=== PATIENT | female | born 1985 | race Caucasian/White ===

== ENCOUNTER 2018-02-27 21:27 | Emergency (ER) | payer OTHER ==
[2018-02-27 21:59] VITALS: BP 111/72; PULSE 85; TEMP 98.2; BMI 34.3
[2018-02-27 22:27] LABS: HCG,QUALITATIVE URINE POSITIVE
[2018-02-27 22:28] LABS: URINE APPEARANCE CLOUDY; URINE BILIRUBIN NEGATIVE (<2.0 mg/dL); URINE BLOOD NEGATIVE (NEGATIVE); URINE COLOR YELLOW; URINE GLUCOSE (UA) NEGATIVE (NEGATIVE); URINE KETONE NEGATIVE (NEGATIVE); URINE LEUK ESTERASE 3+ (NEGATIVE); URINE NITRITE NEGATIVE (NEGATIVE); URINE PROTEIN NEGATIVE (NEGATIVE); URINE UROBILINOGEN NEGATIVE mg/dL (0.2-1.0)
[2018-02-27 22:49] LABS: EPI CELLS MODERATE /HPF (FEW); YEAST FEW
--- NOTE | 2018-02-27 23:40 | PDOC ---
History of Present Illness - General Chief Complaint: Pain Stated Complaint: 7 WEEK PREG, PAIN,VAG. BLEEDING Time Seen by Provider: 02/27/18 23:40 Past History - Past Medical History Allergies/Adverse Reactions: Allergies Allergy/AdvReac Type Severity Reaction Status Date / Time No Known Allergies Allergy Verified 02/23/16 20:51 Home Medications: Ambulatory Orders Ciprofloxacin [Cipro -] 500 mg PO Q12H #10 tablet 02/23/16 COPD: No Thyroid Disease: No - Immunization History Immunization Up to Date: No - Suicide/Smoking/Psychosocial Hx Smoking History: Never smoked Substance Use Type: None *Physical Exam - Vital Signs Last Vital Signs Temp Pulse Resp BP Pulse Ox 98.2 F 85 18 111/72 100 02/27/18 21:56 02/27/18 21:56 02/27/18 21:56 02/27/18 21:56 02/27/18 21:56 ED Treatment Course - ADDITIONAL ORDERS Additional order review: Laboratory Results 02/27/18 22:04 Urine Color Yellow Urine Appearance Cloudy Urine pH 8.0 D Ur Specific [place] 1.025 Urine Protein Negative Urine Glucose (UA) Negative Urine Ketones Negative Urine Blood Negative Urine Nitrite Negative Urine Bilirubin Negative Urine Urobilinogen Negative Ur Leukocyte Esterase 3+ H Urine WBC (Auto) 26 Urine RBC (Auto) 8 Ur Epithelial Cells Moderate Urine Yeast Few Urine HCG, Qual Positive *DC/Admit/Observation/Transfer - Referrals Referrals: Sandra Flores [Primary Care Provider] - - Patient Instructions - Post Discharge Activity
--- NOTE | 2018-02-27 23:42 | PDOC ---
History of Present Illness - General Chief Complaint: Pain Stated Complaint: 7 WEEK PREG, PAIN,VAG. BLEEDING Time Seen by Provider: 02/27/18 23:40 - History of Present Illness Initial Comments: 02/28/18 02:05 32 year old female with vaginal spotting x 1 day. lmp January 11, 2018. reports suprapubic pain and lower back pain. denies nausea./ 02/28/18 02:47 Past History - Past Medical History Allergies/Adverse Reactions: Allergies Allergy/AdvReac Type Severity Reaction Status Date / Time No Known Allergies Allergy Verified 02/23/16 20:51 Home Medications: Ambulatory Orders Ciprofloxacin [Cipro -] 500 mg PO Q12H #10 tablet 02/23/16 Cephalexin Monohydrate [Keflex -] 500 mg PO BID #20 capsule 02/28/18 COPD: No Thyroid Disease: No - Immunization History Immunization Up to Date: No - Suicide/Smoking/Psychosocial Hx Smoking History: Never smoked Substance Use Type: None *Physical Exam - Vital Signs Last Vital Signs Temp Pulse Resp BP Pulse Ox 98.2 F 85 18 111/72 100 02/27/18 21:56 02/27/18 21:56 02/27/18 21:56 02/27/18 21:56 02/27/18 21:56 - Physical Exam Respiratory/Chest: positive: Lungs Clear, Normal Breath Sounds Female Pelvic Exam: positive: normal external exam, discharge (white vaginal discharge) Gastrointestinal/Abdominal: positive: Normal Bowel Sounds, Tender (suprepubic tenderness), Soft ED Treatment Course - LABORATORY CBC & Chemistry Diagram: 02/28/18 00:01 - ADDITIONAL ORDERS Additional order review: Laboratory Results 02/27/18 22:04 Urine Color Yellow Urine Appearance Cloudy Urine pH 8.0 D Ur Specific [place] 1.025 Urine Protein Negative Urine Glucose (UA) Negative Urine Ketones Negative Urine Blood Negative Urine Nitrite Negative Urine Bilirubin Negative Urine Urobilinogen Negative Ur Leukocyte Esterase 3+ H Urine WBC (Auto) 26 Urine RBC (Auto) 8 Ur Epithelial Cells Moderate Urine Yeast Few Urine HCG, Qual Positive - RADIOLOGY Radiograph Interpretation: 02/28/18 01:30 Ultrasound :Uterus is anteverted and measures 11.1centimeters in length. There is a single live IUP with estimated age 6 weeks one day. Normal heart rate of 122 beats per minute. No subchorionic bleed. The right ovary measures 2.7centimeters in length, contains a 1.7 cm cyst, possibly corpus luteum, and demonstrates normal flow. Left ovary was not visualized. There is no significant free fluid. *DC/Admit/Observation/Transfer Diagnosis at time of Disposition: Vaginal bleeding in UTI (urinary tract infection) Qualifiers: Urinary tract infection type: acute cystitis Hematuria presence: without hematuria Qualified Code(s): N30.00 - Acute cystitis without hematuria - Discharge Dispostion Disposition: HOME - Prescriptions Prescriptions: Cephalexin Monohydrate [Keflex -] 500 mg PO BID #20 capsule - Referrals Referrals: Sandra Flores [Primary Care Provider] - Call tomorrow Deena Coa MD [Staff Physician] - - Patient Instructions Printed Discharge Instructions: DI for Vaginal Bleeding During Additional Instructions: take cephalexin as prescribed. 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 return to the ER if symptoms worsen r - Post Discharge Activity Forms/Work/School Notes: Back to Work
[2018-02-28 00:24] LABS: BASO % 0.4 % (0-2.0); EOS % 0.6 % (0-4.5); HEMATOCRIT 37.2 % (32.4-45.2); HEMOGLOBIN 12.2 GM/dL (10.7-15.3); LYMPH % 40.7 % (8-40); MCH 26.6 pg (25.7-33.7); MEAN CELL VOLUME 80.7 fl (80-96); MONO % 7.5 % (3.8-10.2); NEUT % 50.8 % (42.8-82.8); PLATELET COUNT 168 K/MM3 (134-434); RDW 13.5 % (11.6-15.6); WHITE BLOOD COUNT 9.6 K/mm3 (4.0-10.0)
[2018-02-28] MEDS ORDERED: CEPHALEXIN MONOHYDRATE 500 MG CAPSULE (UD) PO ONE (01:30)
[2018-02-28] MEDS ORDERED: CEPHALEXIN MONOHYDRATE 500 MG CAPSULE (UD) ONE (01:58)
== END 2018-02-28 02:59 | disposition home or self-care (01) ==
LOC: JER 21:27
DX: O26.891 Other specified pregnancy related conditions, first trimester (principal); O23.11 Infections of bladder in pregnancy, first trimester; Z3A.01 Less than 8 weeks gestation of pregnancy
CPT/HCPCS: 76817-TC; 81003; 81015; 84702; 84703; 85025; 86850; 86900; 86901; 99281-25

== ENCOUNTER 2018-06-30 17:05 | Emergency (ER) | payer OTHER ==
[2018-06-30 17:11] VITALS: BMI 37.7
--- NOTE | 2018-06-30 17:18 | PDOC ---
Rapid Medical Evaluation Chief Complaint: Back Pain Time Seen by Provider: 06/30/18 17:16 Medical Evaluation: Allergies Allergy/AdvReac Type Severity Reaction Status Date / Time No Known Allergies Allergy Verified 06/30/18 17:09 Vital Signs Temp Pulse Resp BP Pulse Ox 98.5 F 96 H 18 122/93 100 06/30/18 17:09 06/30/18 17:09 06/30/18 17:09 06/30/18 17:09 06/30/18 17:09 06/30/18 17:16 I have performed a brief in person evaluation of this patient The patient presents with a chief complaint of lower abdominal pressure and back pain. She is 24 weeks Pertinent physical exam findings: In NAD, unlabored breathing. Gravid The patient will proceed to the Labor and Delivery for further eval Discharge Disposition - Diagnosis Abdominal pain, Abdominal pain affecting - Referrals - Patient Instructions - Post Discharge Activity
[2018-06-30 17:59] VITALS: BP 127/72; PULSE 78; TEMP 98.2
== END 2018-06-30 18:10 | disposition home or self-care (01) ==
LOC: JER 17:05
DX: O26.892 Other specified pregnancy related conditions, second trimester (principal); R10.30 Lower abdominal pain, unspecified; M54.5 Low back pain; Z3A.24 24 weeks gestation of pregnancy
CPT/HCPCS: 99281-25

== ENCOUNTER 2018-10-17 09:13 | Inpatient (IN) | payer OTHER ==
[2018-10-17] MEDS ORDERED: AMPICILLIN - 2 GM in SODIUM CHLORIDE 100 ML IVPB ONE (10:00)
[2018-10-17] MEDS ORDERED: AMPICILLIN SODIUM 2 GM VIAL ONE (10:11)
[2018-10-17] MEDS ORDERED: ELECTROLYTE-148 SOLN 1,000 ML IV SCH ×3 (10:30→12:30)
[2018-10-17] MEDS ORDERED: CITRIC ACID/SODIUM CITRATE 30 ML UNIT-DOSE CUP PO ONE ×2 (10:31→11:30)
--- NOTE | 2018-10-17 10:39 | HP ---
Past Medical History - Primary Care Physician PCP:: Nolberto Beaver - Admission Chief Complaint: 39 weeks, previous c/s of unknown type. vaginal bleeding in labor History Source: Patient Limitations to Obtaining History: No Limitations - Past Surgical History Past Surgical History: Yes: Hx Myomectomy: No Hx Transabdominal Cerclage: No - Smoking History Smoking history: Never smoked Have you smoked in the past 12 months: No - Alcohol/Substance Use Hx Alcohol Use: No - Social History History of Recent Travel: No Home Medications - Allergies Allergies/Adverse Reactions: Allergies Allergy/AdvReac Type Severity Reaction Status Date / Time No Known Allergies Allergy Verified 10/17/18 10:17 - Home Medications Home Medications: Ambulatory Orders Vits96/Iron Fum/Folic [ Tablet] 1 each PO DAILY 10/17/18 Review of Systems - Review of Systems Constitutional: reports: No Symptoms Eyes: reports: No Symptoms HENT: reports: No Symptoms Neck: reports: No Symptoms Cardiovascular: reports: No Symptoms Respiratory: reports: No Symptoms Gastrointestinal: reports: No Symptoms Genitourinary: reports: Vaginal Bleeding Breasts: reports: No Symptoms Reported Musculoskeletal: reports: No Symptoms Integumentary: reports: No Symptoms Neurological: reports: No Symptoms Endocrine: reports: No Symptoms Hematology/Lymphatic: reports: No Symptoms Psychiatric: reports: No Symptoms Physical Exam - Maternity Constitutional: Yes: Well Nourished, No Distress, Calm Eyes: Yes: WNL, Conjunctiva Clear, EOM Intact HENT: Yes: WNL, Atraumatic, Normocephalic Neck: Yes: WNL, Supple, Trachea Midline Cardiovascular: Yes: WNL, Regular Rate and Rhythm Breast(s): Yes: WNL - Abdominal Exam/OB Fundal Height: 38 Number of Fetuses: Single Presentation: Vertex Contractions: Yes Regularity: Regular Intensity: Mod/Strong Monitor Mode: External Heart Rate Location: [facility] Category: I Accelerations: Uniform Decelerations: None - Vaginal Exam/OB Vaginal Bleediing: Yes, Bloody Show Speculum Exam: No Dilatation (cm): 1 cm Effacement (%): 70 Amniotic Membrane Status: Intact Nitrazine Test: Negative Presentation: Vertex/Position Station: -4 - Physical Exam Musculoskeletal: Yes: WNL Extremities: Yes: WNL Edema: Yes Edema: LLE: Trace, RLE: Trace Deep Tendon Reflex Grade: Normal +2 ...Motor Strength: WNL Psychiatric: Yes: WNL Hemorrhage Risk Assessment - Risk Factors Medium Risk Factors: Yes: Multiple gestation High Risk Factors: Yes: Active bleeding on admission Risk Score: 3 Risk Level: High Risk Problem List - Problems (1) with 38 completed weeks gestation Code(s): Z3A.38 - 38 WEEKS GESTATION OF (2) Previous section Code(s): Z98.891 - HISTORY OF UTERINE SCAR FROM PREVIOUS SURGERY (3) Labor established Code(s): NSS5435 - (4) Vaginal bleeding in Code(s): O46.90 - ANTEPARTUM HEMORRHAGE, UNSPECIFIED, UNSPECIFIED TRIMESTER Assessment/Plan previous c/s of unlnown type, early labor , vaginal bleeding , repeat c/s vs discussed with patient , risks of repeat c/s discussed , wants repeat c/s
[2018-10-17 10:49] VITALS: BMI 42.4
[2018-10-17] MEDS ORDERED: morphine SULFATE/Preservative Free 0.5 MG/ML (1cc Syringe) ONE (10:54)
[2018-10-17] MEDS ORDERED: BUPIVACAINE HCL/PF 0.5% (5MG/ML) 10 ML VIAL ONE (10:56)
[2018-10-17] MEDS ORDERED: OXYTOCIN 20 UNITS in 0.9% NS 20 UNIT/1,000 ML INFUS.BAG IV ONE (11:08)
[2018-10-17 11:11] LABS: BASO % 0.2 % (0-2.0); EOS % 0.2 % (0-4.5); HEMATOCRIT 39.2 % (32.4-45.2); LYMPH % 19.6 % (8-40); MCH 26.8 pg (25.7-33.7); MCHC 33.2 g/dl (32.0-36.0); MEAN CELL VOLUME 80.8 fl (80-96); MEAN PLT VOLUME 10.1 fl (7.5-11.1); MONO % 5.5 % (3.8-10.2); NEUT % 74.5 % (42.8-82.8); PLATELET COUNT 156 K/MM3 (134-434); RBC 4.86 M/mm3 (3.60-5.2); RDW 14.2 % (11.6-15.6); WHITE BLOOD COUNT 9.2 K/mm3 (4.0-10.0)
[2018-10-17 11:23] LABS: INR 1.01 (0.83-1.09); PROTHROMBIN TIME (PATIENT) 11.9 SEC (9.7-13.0)
[2018-10-17 11:26] LABS: ACTIVATED PTT 26.6 SECONDS (25.2-36.5)
[2018-10-17 11:36] LABS: ANION GAP 11 MMOL/L (8-16); BLOOD UREA NITROGEN 9 mg/dL (7-18); CALCIUM 8.2 mg/dL (8.5-10.1); CHLORIDE 105 mmol/L (98-107); CO2 23 mmol/L (21-32); CREATININE 0.4 mg/dL (0.55-1.3); GLUCOSE,RANDOM 70 mg/dL (74-106); POTASSIUM 3.9 mmol/L (3.5-5.1); SODIUM 139 mmol/L (136-145)
[2018-10-17] MEDS ORDERED: oxyCODONE HCL 5 MG TABLET PO PRN (12:36)
[2018-10-17] MEDS ORDERED: BENZOCAINE 28 GM HEMORRHOIDAL OINTMENT PR PRN (12:36)
[2018-10-17] MEDS ORDERED: BENZOCAINE 20% 57 GM BOTTLE TP PRN (12:36)
[2018-10-17] MEDS ORDERED: METHYLERGONOVINE MALEATE 0.2 MG/1 ML AMP IM PRN (12:36)
[2018-10-17] MEDS ORDERED: diphenhydrAMINE HCL 25 MG CAPSULE (FP) PO PRN (12:36)
[2018-10-17] MEDS ORDERED: WITCH HAZEL 50% (TUCKS) 40 PAD/JAR PAD TP PRN (12:36)
[2018-10-17] MEDS ORDERED: DEXTROSE 5%-LACTATED RINGERS 1,000 ML IV SCH (12:45)
[2018-10-17] MEDS ORDERED: OXYTOCIN 20 UNITS in 0.9% NS 20 UNIT/1,000 ML INFUS.BAG IV SCH ×2 (12:45→13:00)
--- NOTE | 2018-10-17 13:57 | OP ---
DATE OF OPERATION: 10/17/2018 PREOPERATIVE DIAGNOSES: , 39 weeks, previous section of unknown type, labor, vaginal bleeding. POSTOPERATIVE DIAGNOSES: , 39 weeks, previous section of unknown type, labor, vaginal bleeding. PROCEDURE: Repeat low-segment transverse section. SURGEON: Leola Beaver MD GAGE DESIGNER: ROBI Ford ANESTHESIA: Spinal. ESTIMATED BLOOD LOSS: 500 mL FINDINGS: A live baby boy, Apgars 9 and 9. DESCRIPTION OF OPERATION: Patient was taken to the operating room. Under adequate spinal anesthesia, abdomen and perineum were prepped and draped. Pfannenstiel abdominal skin incision was made. The abdominal wall was cut layer by layer until peritoneum was exposed and incised. Upon entering the abdominal cavity, lower uterine segment was identified and uterovesical fold of peritoneum established. Bladder was pushed down. Then, with the lower blade of the Martin retractor in the pelvis, a low transverse uterine incision was made. Incision extended laterally. Amniotic sac was entered; clear fluid. Head delivered from right occiput transverse position. Nasopharynx was suctioned. Live baby boy was delivered without any difficulty. Apgars 9 and 9. Placenta was delivered manually. Uterine cavity was cleaned out of remaining tissue. Uterine incision was closed in 2 layers, first layer with 0 Biosyn continuous suture, the second layer with 0 Biosyn imbricating the first layer. There was some bleeding at the left angle of the uterine incision which was sutured with interrupted suture of 0 Biosyn, and hemostasis was established. Then, peritoneum was closed with 0 Biosyn continuous suture. All the lap pad, sponge, and instrument count was correct. No active bleeding was seen. The fascia was closed with 0 Biosyn continuous suture and then the subcutaneous fat was closed with interrupted suture of 0 Biosyn and the skin was closed with vane. Patient tolerated the procedure well, left the OR in good condition. LEOLA BEAVER M.D. [id number]
[2018-10-17] MEDS ORDERED: ONDANSETRON 4 MG/2 ML VIAL IVPUSH PRN (14:55)
[2018-10-17] MEDS ORDERED: morphine SULFATE/Preservative Free 0.5 MG/ML (1cc Syringe) EP ONE (14:56)
[2018-10-17] MEDS ORDERED: LACTATED RINGERS SOLUTION 1,000 ML IV SCH (15:00)
[2018-10-17] MEDS: IBUPROFEN 800 MG/8 ML IJ IVPB PRN (17:35)
[2018-10-17] MEDS: CEFAZOLIN 1 GM/D5W 1 GM/50 ML BAG IVPB SCH (19:02)
[2018-10-18] MEDS: CEFAZOLIN 1 GM/D5W 1 GM/50 ML BAG IVPB SCH (02:06)
[2018-10-18] MEDS: IBUPROFEN 800 MG/8 ML IJ IVPB PRN (06:26)
[2018-10-18 07:36] LABS: BASO % 0.1 % (0-2.0); EOS % 0.3 % (0-4.5); HEMATOCRIT 32.9 % (32.4-45.2); HEMOGLOBIN 11.3 GM/dL (10.7-15.3); LYMPH % 16.8 % (8-40); MCH 27.7 pg (25.7-33.7); MCHC 34.5 g/dl (32.0-36.0); MEAN CELL VOLUME 80.3 fl (80-96); MEAN PLT VOLUME 9.3 fl (7.5-11.1); MONO % 6.4 % (3.8-10.2); NEUT % 76.4 % (42.8-82.8); PLATELET COUNT 131 K/MM3 (134-434); RDW 14.4 % (11.6-15.6); WHITE BLOOD COUNT 9.8 K/mm3 (4.0-10.0)
[2018-10-18] MEDS: ENOXAPARIN NA (PORCINE) 40 MG/0.4 ML DISP.SYRIN SQ SCH (09:55)
--- NOTE | 2018-10-18 10:06 | PN ---
Post Progress Note - Subjective Subjective: c/o pain scale 6/10 not oob yet not voided since cintron is taken out Post Day: 1 Type of Delivery: Repeat C/S Vital Signs: Vital Signs Temperature 98.5 F 10/18/18 06:00 Pulse Rate 83 10/18/18 06:00 Respiratory Rate 20 10/18/18 06:00 Blood Pressure 117/75 10/18/18 06:00 O2 Sat by Pulse Oximetry (%) 100 10/17/18 14:00 Breast Exam: Yes: Soft, Other (plans to BF ). No: Engorged Uterus: Yes: Fundus Firm, Fundus below umbilicus, Non-tender Incision: Yes: Dressing dry and intact. No: Oozing Abdomen/GI: Yes: Abdomen soft (bs active ), Abdominal Distention (obese abdomen ), Tolerating PO (clear fluid s). No: Tender, Passing flatus Lochia: Yes: Rubra Lochia, amount: Moderate Extremities: Yes: Calves non-tender Perineum: Yes: Intact Activity: Other (in bed still ) - Labs Labs: CBC WBC 9.8 K/mm3 (4.0-10.0) 10/18/18 07:00 RBC 4.10 M/mm3 (3.60-5.2) 10/18/18 07:00 Hgb 11.3 GM/dL (10.7-15.3) 10/18/18 07:00 Hct 32.9 % (32.4-45.2) D 10/18/18 07:00 MCV 80.3 fl (80-96) 10/18/18 07:00 MCH 27.7 pg (25.7-33.7) 10/18/18 07:00 MCHC 34.5 g/dl (32.0-36.0) 10/18/18 07:00 RDW 14.4 % (11.6-15.6) 10/18/18 07:00 Plt Count 131 K/MM3 (134-434) L 10/18/18 07:00 MPV 9.3 fl (7.5-11.1) 10/18/18 07:00 Absolute Neuts (auto) 7.5 K/mm3 (1.5-8.0) 10/18/18 07:00 Neutrophils % 76.4 % (42.8-82.8) 10/18/18 07:00 Lymphocytes % 16.8 % (8-40) 10/18/18 07:00 Monocytes % 6.4 % (3.8-10.2) 10/18/18 07:00 Eosinophils % 0.3 % (0-4.5) 10/18/18 07:00 Basophils % 0.1 % (0-2.0) 10/18/18 07:00 Nucleated RBC % 0 % (0-0) 10/18/18 07:00 Other Findings, Remarks: RS cta i/o 2840/400+300 Problem List - Problems (1) delivery delivered Code(s): O82 - ENCOUNTER FOR DELIVERY WITHOUT INDICATION (2) Encounter for care after hospital delivery Code(s): Z39.2 - ENCOUNTER FOR ROUTINE FOLLOW-UP Assessment/Plan stable Plan encourage po fluids, ambulation & deep breathing ex
[2018-10-18] MEDS ORDERED: BISACODYL 10 MG SUPP.RECT RC PRN (12:36)
[2018-10-18] MEDS: IBUPROFEN 600 MG TABLET (FP) PO PRN ×2 (17:04→20:54)
[2018-10-18] MEDS: ACETAMINOPHEN 325 MG TABLET (FP) PO PRN ×2 (17:04→20:54)
[2018-10-18] MEDS: SIMETHICONE 80 MG TAB.CHEW (FP) PO PRN (18:32)
--- NOTE | 2018-10-19 06:46 | PN ---
Post Progress Note Type of Delivery: Repeat C/S Vital Signs: Vital Signs Temperature 97.8 F 10/18/18 21:00 Pulse Rate 95 H 10/18/18 21:00 Respiratory Rate 18 10/18/18 21:00 Blood Pressure 114/68 10/18/18 21:00 O2 Sat by Pulse Oximetry (%) 100 10/17/18 14:00 Uterus: Yes: Fundus below umbilicus Incision: Yes: Dressing dry and intact Abdomen/GI: Yes: Abdomen soft Lochia: Yes: Rubra Lochia, amount: Small Extremities: Yes: Calves non-tender Perineum: Yes: Intact - Labs Labs: CBC WBC 9.8 K/mm3 (4.0-10.0) 10/18/18 07:00 RBC 4.10 M/mm3 (3.60-5.2) 10/18/18 07:00 Hgb 11.3 GM/dL (10.7-15.3) 10/18/18 07:00 Hct 32.9 % (32.4-45.2) D 10/18/18 07:00 MCV 80.3 fl (80-96) 10/18/18 07:00 MCH 27.7 pg (25.7-33.7) 10/18/18 07:00 MCHC 34.5 g/dl (32.0-36.0) 10/18/18 07:00 RDW 14.4 % (11.6-15.6) 10/18/18 07:00 Plt Count 131 K/MM3 (134-434) L 10/18/18 07:00 MPV 9.3 fl (7.5-11.1) 10/18/18 07:00 Absolute Neuts (auto) 7.5 K/mm3 (1.5-8.0) 10/18/18 07:00 Neutrophils % 76.4 % (42.8-82.8) 10/18/18 07:00 Lymphocytes % 16.8 % (8-40) 10/18/18 07:00 Monocytes % 6.4 % (3.8-10.2) 10/18/18 07:00 Eosinophils % 0.3 % (0-4.5) 10/18/18 07:00 Basophils % 0.1 % (0-2.0) 10/18/18 07:00 Nucleated RBC % 0 % (0-0) 10/18/18 07:00 Assessment/Plan 33yo s/p RLTCS, POD2 Routine PP care Labs reviewed; CXR neg OOB, ambulate DC to home tomorrow Allie Vazquez MD
[2018-10-19] MEDS: ENOXAPARIN NA (PORCINE) 40 MG/0.4 ML DISP.SYRIN SQ SCH (09:10)
[2018-10-19] MEDS: oxyCODONE HCL 5 MG TABLET PO PRN ×2 (09:10→12:45)
[2018-10-19] MEDS: SIMETHICONE 80 MG TAB.CHEW (FP) PO PRN ×3 (09:11→18:04)
[2018-10-19] MEDS: ACETAMINOPHEN 325 MG TABLET (FP) PO PRN ×3 (09:11→18:04)
[2018-10-19] MEDS: IBUPROFEN 600 MG TABLET (FP) PO PRN (18:05)
[2018-10-19] MEDS ORDERED: SENNOSIDES/DOCUSATE COMBO (SENNA PLUS) TABLET (UD) PO PRN (22:00)
[2018-10-20] MEDS: ACETAMINOPHEN 325 MG TABLET (FP) PO PRN ×2 (00:53→11:05)
[2018-10-20] MEDS: SIMETHICONE 80 MG TAB.CHEW (FP) PO PRN ×2 (00:53→11:07)
[2018-10-20] MEDS: IBUPROFEN 600 MG TABLET (FP) PO PRN ×2 (00:54→11:05)
[2018-10-20 06:04] LABS: HEMOGLOBIN 10.1 GM/dL (10.7-15.3); MCH 27.9 pg (25.7-33.7); MCHC 34.7 g/dl (32.0-36.0); MEAN CELL VOLUME 80.4 fl (80-96); PLATELET COUNT 146 K/MM3 (134-434); RBC 3.61 M/mm3 (3.60-5.2); RDW 14.3 % (11.6-15.6); WHITE BLOOD COUNT 7.5 K/mm3 (4.0-10.0)
[2018-10-20 06:05] LABS: BASO % 0.3 % (0-2.0); LYMPH % 33.3 % (8-40); MEAN PLT VOLUME 8.9 fl (7.5-11.1); MONO % 7.8 % (3.8-10.2); NEUT % 57.6 % (42.8-82.8)
--- NOTE | 2018-10-20 08:26 | PN ---
Progress Note (short form) - Note Progress Note: pod 3 , no c/o , voids ok, had BM CBC, BMP 10/20/18 05:56 10/17/18 10:20 Last Vital Signs Temp Pulse Resp BP Pulse Ox 97.7 F 100 H 20 122/87 100 10/19/18 21:06 10/19/18 21:06 10/19/18 21:06 10/19/18 21:06 10/17/18 14:00 abdomen soft, no distension, no cva incision dry, clean no calf tenderness lochia mild plan d/c home, follow up clinic 1 weekfor staple removal Problem List - Problems (1) with 38 completed weeks gestation Code(s): Z3A.38 - 38 WEEKS GESTATION OF (2) Previous section Code(s): Z98.891 - HISTORY OF UTERINE SCAR FROM PREVIOUS SURGERY (3) Labor established Code(s): [id number] - (4) Vaginal bleeding in Code(s): O46.90 - ANTEPARTUM HEMORRHAGE, UNSPECIFIED, UNSPECIFIED TRIMESTER
--- NOTE | 2018-10-20 08:28 | DS ---
Physical Exam-CERTIFIED PEER SPECIALIST Vital Signs: Vital Signs Temperature 97.7 F 10/19/18 21:06 Pulse Rate 100 H 10/19/18 21:06 Respiratory Rate 20 10/19/18 21:06 Blood Pressure 122/87 10/19/18 21:06 O2 Sat by Pulse Oximetry (%) 100 10/17/18 14:00 Constitutional: Yes: Well Nourished, No Distress, Calm Eyes: Yes: WNL, Conjunctiva Clear, EOM Intact HENT: Yes: WNL, Atraumatic, Normocephalic Neck: Yes: WNL, Supple, Trachea Midline Cardiovascular: Yes: WNL, Regular Rate and Rhythm Respiratory: Yes: WNL, Regular, CTA Bilaterally Gastrointestinal: Yes: WNL ...Rectal Exam: Yes: WNL Renal/: Yes: WNL External Genitalia: Yes: Normal Vaginal Exam: Yes: Normal ....Post : Yes: Uterus firm, Uterus non-tender, Slight lochia rubra Breast(s): Yes: WNL Musculoskeletal: Yes: WNL Extremities: Yes: WNL Edema: No Integumentary: Yes: WNL Wound/Incision: Yes: Clean/Dry, Well Approximated, Arthur Intact Neurological: Yes: WNL, Alert, Oriented ...Motor Strength: WNL Psychiatric: Yes: WNL, Alert, Oriented Labs: CBC, BMP 10/20/18 05:56 10/17/18 10:20 Delivery - Delivery Section: Repeat, Low Flap Transverse (no complication) Type of Anesthesia: Spinal Episiotomy/Laceration: None EBL (cc): 500 Delivery, Single - Stages of Labor Date 1st Stage Initiatied: 10/17/18 Time 1st Stage Initiated: 06:00 Date of Delivery: 10/17/18 Time of Delivery: 11:52 Time Placenta Delivered: 11:53 Placenta: Yes: Expressed - Condition of Pig Iron Loader/Management Trainer Present: Yes Name: Jamie Mejia Gender: Male Weight: 8 lb 8 oz Position: Right, OT Total Hours ROM (Hrs/Mins): 0/2 - 1 Minute Total Score: 9 5 Minutes Total Score: 9 - Feeding Plan Initial Plan: Elected not to breastfeed exclusively throughout hospitalization Discharge Summary Reason For Visit: PREVIOUS IN LABOR Current Active Problems delivery delivered (Acute) Encounter for care after hospital delivery (Acute) Labor established (Acute) with 38 completed weeks gestation (Acute) Previous section (Acute) Other Procedures: repeat LST c/s Hospital Course: no complication Condition: Stable - Instructions Diet, Activity, Other Instructions: Regular Diet Arthur need to be removed in one week Referrals: Allie Vazquez MD [Staff Physician] - Disposition: HOME - Home Medications Comprehensive Discharge Medication List: Ambulatory Orders Vits96/Iron Fum/Folic [ Tablet] 1 each PO DAILY 10/17/18 Ibuprofen 600 mg PO Q6H PRN #30 tablet 10/19/18 Oxycodone HCl/Acetaminophen [Percocet 5-325 mg Tablet -] 1 - 2 tab PO Q6H PRN # 20 tab MDD 3 10/19/18
[2018-10-20] MEDS: ENOXAPARIN NA (PORCINE) 40 MG/0.4 ML DISP.SYRIN SQ SCH (10:57)
[2018-10-20 13:29] VITALS: BP 124/72; PULSE 68; TEMP 98.2
--- NOTE | 2018-10-27 17:51 | PATH ---
Surgical Pathology Report Patient Name: ELIA DUMONT V. [facility]. Rec. #: [id number] /Age/Gender: 1985 (Age: 33) / F Account: [id number] Location: [facility] OBS/MORTGAGE LOAN COUNSELOR Taken: 10/17/2018 Received: 10/18/2018 Reported: 10/27/2018 Physicians: Nolberto Beaver M.D. Specimen(s) Received PLACENTA Clinical History at 39.1 weeks, history of previous x3, x1 Positive GBS Final Diagnosis PLACENTA: THIRD TRIMESTER PLACENTA. TRIVASCULAR CORD. MEMBRANES WITH NO DIAGNOSTIC ABNORMALITIES. Electronically Signed Kirstie Stevenson M.D. Gross Description The specimen is received fresh labeled placenta and is a 511 gram, 16.5 x 15.5 x 2.5 cm. placenta with attached membranes and umbilical cord. The attached membranes are lombardi, translucent with focal opacities and insert marginally. The umbilical cord measures 35 cm. in length and averages 1 cm. in diameter. The cord inserts eccentrically, 2 cm. to the nearest margin. No true knots or strictures are identified. Cut surface of the umbilical cord reveals 3 vessels. The surface is hector-blue with minimal fibrin deposition and appropriate caliber vessels. The maternal surface is red-brown with focal defects. Sectioning reveals red-brown, spongy parenchyma. No lesions are identified. Rail Detector Car Operator sections are submitted in three cassettes as follows: 1- membrane rolls and umbilical cord; 2-3- full thickness sections of placenta. /10/26/2018 saudi10/26/2018
== END 2018-10-20 12:15 | disposition home or self-care (01) | DRG 540 ==
LOC: JDEL 09:13 → JLDR 09:55 → J3W 14:31
PROVIDERS: ADMIT Obstetrics & Gynecology; ATTEND Obstetrics & Gynecology
PROC: 10D00Z1 Extraction of Products of Conception, Low, Open Approach (ICD-10-PCS; principal; 2018-10-17)
DX: O34.211 Maternal care for low transverse scar from previous cesarean delivery (principal); O67.9 Intrapartum hemorrhage, unspecified; Z3A.39 39 weeks gestation of pregnancy; Z37.0 Single live birth
CPT/HCPCS: 36415; 71046-TC-FY; 80048; 85025; 85610; 85730; 86593; 86850; 86900; 86901; 88307-TC

== ENCOUNTER 2020-10-03 04:27 | Day surgery (SDC) | payer OTHER ==
[2020-09-29 14:37] VITALS: BMI 35.1
[2020-10-03] MEDS ORDERED: BUPIVACAINE HCL 50 ML ONE (08:04)
[2020-10-03] MEDS ORDERED: BUPIVACAINE HCL/PF 0.75% 10 ML VIAL ONE ×2 (08:04→10:03)
[2020-10-03] MEDS ORDERED: LIDOCAINE HCL/PF 2% SDV 5ML VIAL ONE (08:06)
[2020-10-03] MEDS ORDERED: SODIUM CHLORIDE 0.9% P/F 10 ML VIAL IJ ONE (08:06)
[2020-10-03] MEDS ORDERED: DEXAMETHASONE SOD PHOSPHATE/PF 10 MG/ML SDV ONE ×2 (08:12→10:02)
[2020-10-03] MEDS ORDERED: LIDOCAINE HCL/PF 1% SDV 5ML VIAL ONE ×2 (08:12→10:02)
[2020-10-03 09:07] VITALS: TEMP 97.7
[2020-10-03] MEDS ORDERED: BUPIVACAINE HCL 100 ML ONE (10:02)
[2020-10-03] MEDS ORDERED: DEXAMETHASONE SOD PHOSPHATE 4 MG/1 ML VIAL NR ONE (10:18)
[2020-10-03] MEDS ORDERED: LIDOCAINE HCL 1% PRESERVATIVE FREE - 30ML VIAL INF ONE (10:18)
[2020-10-03] MEDS ORDERED: IOHEXOL 180 MG/1 ML ML IT ONE (10:20)
[2020-10-03 10:45] VITALS: BP 125/88; PULSE 74
== END 2020-10-03 11:20 | disposition home or self-care (01) ==
LOC: JASU-SURG 04:27
PROVIDERS: ATTEND Pain Medicine Pain Medicine
PROC: 3E0R33Z Introduction of Anti-inflammatory into Spinal Canal, Percutaneous Approach (ICD-10-PCS; 2020-10-03)
PROC: 3E0R3BZ Introduction of Anesthetic Agent into Spinal Canal, Percutaneous Approach (ICD-10-PCS; principal; 2020-10-03 10:30)
DX: M54.16 Radiculopathy, lumbar region (principal)
CPT/HCPCS: 76000-TC-FY; 81025

== ENCOUNTER 2021-06-26 19:40 | Emergency (ER) | payer OTHER ==
[2021-06-26 19:45] VITALS: BP 130/83; PULSE 75; TEMP 98; BMI 34.4
== END 2021-06-26 21:38 | disposition home or self-care (01) ==
LOC: JERFT 19:40
DX: H02.843 Edema of right eye, unspecified eyelid (principal); S05.91XA Unspecified injury of right eye and orbit, initial encounter
CPT/HCPCS: 99283-25

== ENCOUNTER 2021-09-30 10:19 | Emergency (ER) | payer OTHER ==
[2021-09-30 11:07] VITALS: BP 135/95; PULSE 92; TEMP 97.9; BMI 34.2
[2021-09-30] MEDS ORDERED: IBUPROFEN 600 MG TABLET (FP) PO ONE ×2 (11:30→11:51)
== END 2021-09-30 14:27 | disposition home or self-care (01) ==
LOC: JERFT 10:19 → JER 10:19 → JERFT 14:27
DX: S49.91XA Unspecified injury of right shoulder and upper arm, initial encounter (principal); W01.0XXA Fall on same level from slipping, tripping and stumbling without subsequent striking against object, initial encounter
CPT/HCPCS: 73030-TC-RT-FY; 99283-25

== ENCOUNTER 2023-05-11 16:30 | Emergency (ER) | payer OTHER ==
[2023-05-11 16:44] VITALS: BP 131/93; PULSE 83; RESP 19; TEMP 98.2; BMI 32.0
[2023-05-11] MEDS ORDERED: LIDOCAINE 5% TOPICAL PATCH TP ONE (17:29)
[2023-05-11] MEDS ORDERED: KETOROLAC TROMETHAMINE 30 MG/1 ML VIAL IM ONE (17:29)
[2023-05-11] MEDS ORDERED: DEXAMETHASONE SOD PHOSPHATE 10 MG/1 ML VIAL IM ONE (17:29)
[2023-05-11] MEDS ORDERED: METHOCARBAMOL 500 MG TABLET PO ONE (17:29)
[2023-05-11] MEDS ORDERED: LIDOCAINE 5% TOPICAL PATCH ONE (17:36)
[2023-05-11] MEDS ORDERED: DEXAMETHASONE SOD PHOSPHATE 10 MG/1 ML VIAL ONE (17:37)
[2023-05-11] MEDS ORDERED: KETOROLAC TROMETHAMINE 60 MG/2 ML VIAL ONE (17:37)
[2023-05-11] MEDS ORDERED: METHOCARBAMOL 500 MG TABLET ONE (17:37)
== END 2023-05-11 19:08 | disposition home or self-care (01) ==
LOC: JERFT 16:30
PROC: 3E023GC Introduction of Other Therapeutic Substance into Muscle, Percutaneous Approach (ICD-10-PCS; principal; 2023-05-11)
PROC: 3E0233Z Introduction of Anti-inflammatory into Muscle, Percutaneous Approach (ICD-10-PCS; 2023-05-11)
DX: M25.512 Pain in left shoulder (principal); M54.2 Cervicalgia; R51.9 Headache, unspecified; M62.838 Other muscle spasm
CPT/HCPCS: 73030-TC-LT-FY; 99284-25; J1100

== ENCOUNTER 2023-05-24 17:46 | Emergency (ER) | payer OTHER ==
[2023-05-24 17:54] VITALS: BP 119/80; PULSE 64; RESP 18; TEMP 98.3; BMI 32.0
[2023-05-24] MEDS ORDERED: KETOROLAC TROMETHAMINE 30 MG/1 ML VIAL ONE (19:35)
[2023-05-24] MEDS ORDERED: KETOROLAC TROMETHAMINE 30 MG/1 ML VIAL IM ONE (19:35)
== END 2023-05-24 20:35 | disposition home or self-care (01) ==
LOC: JERFT 17:46
PROC: 3E0233Z Introduction of Anti-inflammatory into Muscle, Percutaneous Approach (ICD-10-PCS; principal; 2023-05-24)
DX: M41.24 Other idiopathic scoliosis, thoracic region (principal); M54.9 Dorsalgia, unspecified; M54.2 Cervicalgia; M62.838 Other muscle spasm
CPT/HCPCS: 72050-TC-FY; 72070-TC-FY; 99284-25

== ENCOUNTER 2024-01-25 16:05 | Emergency (ER) | payer OTHER ==
[2024-01-25 16:14] VITALS: BP 123/87; PULSE 76; RESP 18; TEMP 98.2; BMI 30.7
[2024-01-25] MEDS ORDERED: ACETAMINOPHEN INJECTION 100 ML IVPB ONE (17:52)
[2024-01-25] MEDS ORDERED: METOCLOPRAMIDE HCL INJECTION 10 MG/2 ML VIAL ONE (17:52)
[2024-01-25] MEDS: ACETAMINOPHEN 1000 MG/100 ML BAG IVPB ONE (18:23)
[2024-01-25 18:32] LABS: BASO % 0.6 % (0-2.0); EOS % 0.8 % (0-4.5); HEMOGLOBIN 13.4 GM/dL (10.7-15.3); LYMPH % 48.6 % (8-40); MCH 25.8 pg (25.7-33.7); MEAN CELL VOLUME 80.8 fl (80-96); MEAN PLT VOLUME 8.8 fl (7.5-11.1); MONO % 7.5 % (3.8-10.2); NEUT % 42.5 % (42.8-82.8); PLATELET COUNT 154 10^3/uL (134-434); WHITE BLOOD COUNT 6.9 K/mm3 (4.0-10.0)
[2024-01-25] MEDS: METOCLOPRAMIDE HCL INJECTION 10 MG/2 ML VIAL IVPUSH ONE (18:35)
[2024-01-25 18:42] LABS: INR 0.97 (0.83-1.09)
[2024-01-25 18:45] LABS: ACTIVATED PTT 29.9 SECONDS (25.2-36.5)
[2024-01-25] MEDS: LACTATED RINGERS SOLUTION 1000 ML INFUS.BAG IV ONE (19:01)
[2024-01-25 19:42] LABS: CALCIUM 9.1 mg/dL (8.5-10.1)
[2024-01-25 19:43] LABS: ALBUMIN 4.3 g/dl (3.4-5.0); BLOOD UREA NITROGEN 9.1 mg/dL (7-18); MAGNESIUM 2.3 mg/dL (1.8-2.4)
[2024-01-25 19:46] LABS: CREATININE 0.6 mg/dL (0.55-1.3)
[2024-01-25 19:47] LABS: BILIRUBIN,TOTAL 0.4 mg/dL (0.2-1); TOT PROT 7.6 g/dl (6.4-8.2)
== END 2024-01-25 22:07 | disposition home or self-care (01) ==
LOC: JER 16:05
PROC: 3E030NZ Introduction of Analgesics, Hypnotics, Sedatives into Peripheral Vein, Open Approach (ICD-10-PCS; principal; 2024-01-25)
PROC: 3E030GC Introduction of Other Therapeutic Substance into Peripheral Vein, Open Approach (ICD-10-PCS; 2024-01-25)
DX: R51.9 Headache, unspecified (principal); Z20.822 Contact with and (suspected) exposure to COVID-19
CPT/HCPCS: 0241U-QW; 36415; 70450-TC; 70460-TC; 71046-TC-FY; 80053; 83735; 84484; 84703; 85025; 85610; 85651; 85730; 86140; 86618; 93005; 93010; 99285-25; J0131; Q9967